=== PATIENT | male | born 1955 | race Caucasian/White ===

== ENCOUNTER 2022-03-27 12:50 | Emergency (ER) | payer BC ==
[2022-03-27] MEDS: LORazepam 2 MG/ML SDV ONE (12:54)
[2022-03-27 13:25] LABS: CHLORIDE,CL 107 mmol/L (98-107); SODIUM,NA 145 mmol/L (136-145)
[2022-03-27 13:28] LABS: ANION GAP 29.6 mmol/L (5-15)
[2022-03-27] MEDS: levETIRAcetam in NaCl (iso-os) 2,000 MG in Premix Bag 1 BAG IV ONE ×2 (14:53)
== END 2022-03-27 16:14 | disposition home or self-care (01) ==
LOC: VM.ED 12:50
DX: R56.9 Unspecified convulsions (principal); I10 Essential (primary) hypertension; Z79.82 Long term (current) use of aspirin; Z86.73 Personal history of transient ischemic attack (TIA), and cerebral infarction without residual deficits; Z79.899 Other long term (current) drug therapy
CPT/HCPCS: 36415; 70450; 80053; 81001; 82550; 84484; 85025; 96365; 96375; 99284; 99285-25; J1953; J2060